=== PATIENT | male | born 1980 | race Two or more races ===

== ENCOUNTER 2021-02-04 08:44 | Emergency (ER) | payer OTHER | END 2021-02-04 10:04 | disposition home or self-care (01) | LOC: FER 08:44 | DX: S01.81XA Laceration without foreign body of other part of head, initial encounter (principal); Z23 Encounter for immunization; W19.XXXA Unspecified fall, initial encounter; Y92.89 Other specified places as the place of occurrence of the external cause; Y99.0 Civilian activity done for income or pay | CPT/HCPCS: 90471; 90715 ==